=== PATIENT | male | born 1985 | race African-American/Black ===

== ENCOUNTER 2017-08-30 10:27 | Emergency (ER) | payer OTHER ==
[~2017-08-30] VITALS: Ht 170.2 cm; Wt 77.2 kg
[~2017-08-30 10:27] MED LIST: IBUP100O27 PO
[2017-08-30] MEDS ORDERED: NAPR-58 PO (10:32)
[2017-08-30 11:07] VITALS: BP 119/73
== END 2017-08-30 13:08 | disposition home or self-care (01) ==
LOC: EMS 10:28
DX: S83.92XA Sprain of unspecified site of left knee, initial encounter (principal); Z88.6 Allergy status to analgesic agent; W19.XXXA Unspecified fall, initial encounter; Y93.89 Activity, other specified; Y92.89 Other specified places as the place of occurrence of the external cause; Y99.8 Other external cause status
CPT/HCPCS: 29505; 99284

== ENCOUNTER 2018-06-04 22:12 | Emergency (ER) | payer OTHER ==
[~2018-06-04] VITALS: Ht 170.2 cm; Wt 75.9 kg
[~2018-06-04 22:12] MED LIST changes: +NAPR-58 PO
[2018-06-05 05:04] VITALS: BP 103/60
== END 2018-06-05 05:12 | disposition home or self-care (01) ==
LOC: EMS 22:12
DX: S83.92XA Sprain of unspecified site of left knee, initial encounter (principal); Z88.5 Allergy status to narcotic agent; W01.0XXA Fall on same level from slipping, tripping and stumbling without subsequent striking against object, initial encounter; Y93.89 Activity, other specified; Y92.89 Other specified places as the place of occurrence of the external cause; Y99.8 Other external cause status
CPT/HCPCS: 29505; 99284

== ENCOUNTER 2022-10-28 01:59 | Emergency (ER) | payer OTHER ==
[~2022-10-28] VITALS: Ht 170.2 cm; Wt 75.0 kg
[2022-10-28 03:29] VITALS: BP 135/78
[2022-10-28] MEDS ORDERED: IBUPROFEN 600 MG TABLET PO ONE (04:15)
== END 2022-10-28 04:25 | disposition home or self-care (01) ==
LOC: EMS 01:59
DX: M54.89 Other dorsalgia (principal); Z88.8 Allergy status to other drugs, medicaments and biological substances
CPT/HCPCS: 99282; Z7502; Z7610